=== PATIENT | male | born 2000 | race Caucasian/White ===

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

== ENCOUNTER 2020-07-05 14:18 | Emergency (ER) | payer BC, OTHER ==
[2020-07-05] MEDS ORDERED: Lidocaine 1% 20 ML MDV ONE (14:43)
[2020-07-05] MEDS ORDERED: Bacitracin 1 PK ONE (14:43)
[2020-07-05] MEDS ORDERED: Lidocaine 1% w/Epinephrine 1:100K 20 ML VIAL ONE (14:44)
== END 2020-07-05 15:20 | disposition home or self-care (01) ==
LOC: MADERS 14:18
DX: S51.811A Laceration without foreign body of right forearm, initial encounter (principal); F98.8 Other specified behavioral and emotional disorders with onset usually occurring in childhood and adolescence; F17.210 Nicotine dependence, cigarettes, uncomplicated; F90.9 Attention-deficit hyperactivity disorder, unspecified type; Z79.899 Other long term (current) drug therapy; W26.9XXA Contact with unspecified sharp object(s), initial encounter
CPT/HCPCS: 12002